=== PATIENT | female | born 1970 | race Caucasian/White ===

== ENCOUNTER → 2018-06-16 | Outpatient (CLI) | payer OTHER | LOC: LAB 18:58 → LAB SHORT 18:58 | DX: N39.0 Urinary tract infection, site not specified (principal) | CPT/HCPCS: 87077; 87086; 87186 ==

== ENCOUNTER → 2018-08-11 | Outpatient (CLI) | payer OTHER ==
[2018-08-11 10:21] LABS: Source, Urine Clean Catch
[2018-08-11 12:52] LABS: Appearance, Urine Hazy (Clear); Bilirubin, Urine Neg (Neg); Blood, Urine Neg (Neg); Color, Urine Yellow (P-Yellow); Glucose Qualitative, Urine Neg (Neg); Ketones, Urine Neg (Neg); Leukocyte Esterase, Urine 1+ (Neg); Nitrite, Urine Neg (Neg); Protein, Urine 1+ (Neg); Urobilinogen, Urine NORM (Normal)
[2018-08-11 13:20] LABS: Bacteria Many /hpf; Red Blood Cells, Urine Not Seen /hpf (0-2); Squamous Epithelial Cells Many /hpf (Few)
== END | disposition home or self-care (01) ==
LOC: LAB 10:19 → LAB SHORT 10:19
PROVIDERS: Obstetrics & Gynecology
DX: R32 Unspecified urinary incontinence (principal)
CPT/HCPCS: 81001

== ENCOUNTER → 2022-05-23 | Outpatient (CLI) | payer OTHER ==
[~2022-05-23] MED LIST: DOCU100 PO; Frova2.5 MG; HYDR1TAB94 PO; IBUP800 PO; OXYACE5T PO; VALA500 PO
== END | disposition home or self-care (01) ==
LOC: LAB SHORT 18:00 → LAB 18:00
DX: R10.30 Lower abdominal pain, unspecified (principal)
CPT/HCPCS: 87077; 87086; 87147; 87186

== ENCOUNTER 2023-02-17 09:20 | Day surgery (SDC) | payer OTHER ==
[~2023-02-17] VITALS: Ht 167.6 cm; Wt 81.0 kg
[~2023-02-17 09:20] MED LIST changes: +ENBREL50 MG/1 M2 SQ; +ESTRADIOL0.5 MG PO; +MOBIC15 MG PO
[2023-02-17 11:23] VITALS: BP 120/80
== END 2023-02-17 11:10 | disposition home or self-care (01) ==
LOC: ORSCSDS 09:20
PROVIDERS: Internal Medicine Gastroenterology
PROC: 0DJD8ZZ Inspection of Lower Intestinal Tract, Via Natural or Artificial Opening Endoscopic (ICD-10-PCS; principal; 2023-02-17 10:30)
DX: Z12.11 Encounter for screening for malignant neoplasm of colon (principal); Z68.30 Body mass index [BMI] 30.0-30.9, adult; Z79.899 Other long term (current) drug therapy
CPT/HCPCS: J2704; J7120